=== PATIENT | female | born 1985 | race Caucasian/White ===

== ENCOUNTER 2016-12-19 10:51 | Observation (INO) | payer MEDICAID ==
[2016-12-19 10:59] VITALS: BP 103/68; PULSE 62; RESP 18; TEMP 97.9; O2SAT 99
--- NOTE | 2016-12-19 11:31 | EDPHY ---
H & P Stated Complaint: tripped [id number] /fell impacting back/23 wks /vaginal bleeding HPI/ROS: CHIEF COMPLAINT: Fall, back pain, 23 weeks HISTORY OF PRESENT ILLNESS: patient, 23 weeks gestation. She reports falling today at work. She fell and landed on her back on concrete. She did not strike her head or lose conscious. She has no numbness or tingling. No midline tenderness of the back. She has a mild to moderate right low back pain over the soft tissue. No abdominal strike. Minimal abdominal discomfort. No vaginal bleeding. No pelvic pain. No other associated complaints or modifying factors. REVIEW OF SYSTEMS: Ten systems reviewed and are negative unless otherwise noted in the HPI PAST MEDICAL HISTORY: None SOCIAL HISTORY: Nonsmoker. Twenty-three weeks gestation, FAMILY HISTORY: Noncontributory EXAMINATION General Appearance: Alert, no distress Head: normocephalic, atraumatic Eyes: Pupils equal and round, no conjunctival pallor or injection ENT, Mouth: Mucous membranes moist Neck: Normal inspection, supple, non-tender Respiratory: Lungs are clear to auscultation Cardiovascular: Regular rate and rhythm Gastrointestinal: Abdomen is soft and gravid in appearance. Fundal height is consistent with gestational age. No tenderness. No guarding. No tympany. No rigidity. No CVA tenderness. Back: No midline tenderness. No crepitus, step-off or deformity. Tenderness to the right lower back over the soft tissue only. No lacerations abrasions or contusions. Neurological: GCS 15. A&O, nonfocal, normal gait. Strength is symmetric in all 4 limbs. Sensory intact distally. Skin: Warm and dry, no rash Extremities: Nontender, no pedal edema Psychiatric: Mood and affect normal DIFFERENTIAL DIAGNOSES: Including but not limited to contusion, sprain, strain, fracture MDM: 11:29 a.m. Mechanical fall with right lower back pain. There is no midline tenderness of the spine at any level. There is no evidence of acute cord compression or cauda equina. No evidence of bony trauma or injury. This appears to be all soft tissue of the right lower back. Her abdomen is soft and benign. She is in no acute distress. heart tones are 140 beats per minute. There is a palpable fundus at the appropriate level for gestational age. She will be discharged home in stable condition, and she has instructions to present immediately to Labor and delivery for evaluation of the fetus. She is comfortable with this plan. There is no active bleeding from any site. She is discharged in stable condition. SUPERVISION: This patient was independently evaluated without direct examination by the attending physician. Case was discussed with attending physician. Source: Patient Exam Limitations: No limitations - Personal History LMP (Females 10-55): Current Tetanus/Diphtheria Vaccine: Yes - Medical/Surgical History Hx Asthma: No Hx Chronic Respiratory Disease: No Hx Diabetes: No Hx Cardiac Disease: No Hx Renal Disease: No Hx Cirrhosis: No Hx Alcoholism: No Hx HIV/AIDS: No Hx Splenectomy or Spleen Trauma: No Other PMH: denies - Social History Smoking Status: Never smoked Constitutional: Initial Vital Signs Temperature (C) 97.9 F 12/19/16 10:56 Heart Rate 62 12/19/16 10:56 Respiratory Rate 18 12/19/16 10:56 Blood Pressure 103/68 12/19/16 10:56 O2 Sat (%) 99 12/19/16 10:56 O2 Delivery Mode Room Air Allergies/Adverse Reactions: No Known Allergies Allergy (Unverified 12/19/16 10:56) Home Medications: Medication Instructions Recorded 12/19/16 Departure - Departure Disposition: Home, Routine, Self-Care Clinical Impression: Acute low back pain Qualifiers: Back pain laterality: right Sciatica presence: without sciatica Qualified Code( s): M54.5 - Low back pain Qualifiers: Weeks of gestation: 23 weeks Qualified Code(s): Z3A.23 - 23 weeks gestation of Condition: Good Instructions: Low Back Strain (ED), Acute Low Back Pain (ED) Additional Instructions: 1. Present to Labor and delivery for evaluation of the fetus at this time. 2. Return to the ER for any worsening pain, midline back pain, numbness, tingling, weakness, incontinence, vaginal bleeding Referrals: Flores Masterson PA [Primary Care Provider] - As per Instructions Stand Alone Forms: Work Comp Follow Up
--- NOTE | 2016-12-19 13:09 | OBPROG ---
OBG Labor Progress Note Assessment/Plan: Assessment:irregular contractions noted. denies leaking bleeding and cramping denies pain in abdomen feeling movement consult with isidoro botello, type and screen monitor contractions x 1 h doppler x2 or continuous if able may discharge after lab work back vs wnl Plan:discharge to home after labwork, fu in clinic on friday routinely sees [facility] 12/19/16 13:06 Subjective: Feeling pain in her back after a fall at work. Has been cleared by the er. Denies leaking cramping bleeding, feeling baby move. Objective: Temp Pulse Resp BP Pulse Ox 36.6 C 62 18 103/68 99 12/19/16 10:56 12/19/16 10:56 12/19/16 10:56 12/19/16 10:56 12/19/16 10:56 - Physical Exam General Appearance: WD/WN, alert, no apparent distress Respiratory: chest non-tender, lungs clear, normal breath sounds Cardiac/Chest: regular rate, rhythm Abdomen: normal bowel sounds Extremities: normal range of motion, Ligia's sign (negativbe bilaterally) DTR- Lower Extremities: Knee (R): 1+, Knee (L): 1+ (no clonus) Skin: normal color, warm/dry Neuro/Psych: no motor/sensory deficits, alert, normal mood/affect, oriented x 3 Oxytocin Orders Assessment - Pre-Induction/Augmentation Assessment Gestational Age: 23 week(s) and 5 day(s) ICD10 Worksheet Patient Problems: Problems Problem Status Onset Acute low back pain Acute Acute
--- NOTE | 2016-12-19 13:56 | GHP ---
[f rep st] HISTORY AND PHYSICAL DATE OF ADMISSION: 12/19/2016 HISTORY OF PRESENT ILLNESS: The patient is a 31-year-old, 3, para 2, with an EDC of , which gives her a gestational age of 23 weeks. The patient comes in to Labor and Delivery for observation after a fall at 4:30 this morning, on 12/19/2016 at [facility]. The patient fell to her bottom. The patient is complaining of back pain. Denies leaking, bleeding, cramping. States feel ing positive movement. The patient has been receiving routine care through [facility]. PAST MEDICAL HISTORY: Patient states benign. PAST MEDICAL HISTORY: Benign. GYNECOLOGICAL HISTORY: Benign. FAMILY HISTORY: Noncontributory. SOCIAL HISTORY: Patient is . Denies smoking. Denies any routine drug use. MEDICATIONS: The patient is taking vitamins on a routine basis 1 p.o. daily. ALLERGIES: The patient states she has no allergies. LABORATORY DATA: At this time, I do not have lab work. We will do a type and screen, as well as a KB (Stevan). PHYSICAL ASSESSMENT: GENERAL APPEARANCE: Patient is awake, alert, oriented x3. LUNGS: Clear bila terally. ABDOMEN: Bowel sounds are positive in all 4 quadrants. EXTREMITIES: DTRs are 1+ bilater ally, with no clonus. Homans sign is negative. On the monitor, 1 contraction in 30 minutes was noted. Patient denies feeling that. heart ra te is 140 baseline, and is with 10 x 10 accelerations, which is reassuring for a 23 weeker. PLAN OF CARE: 1. KB. 2. Type and screen. 3. Monitor contractions until labs come back. With labs being negative and patient having a positi ve blood type, will discharge to home. If patient is a negative blood type, patient will receive Rh oGAM before discharge. Plan of care followup is to follow up in her own clinic on Friday, and discu ssed with patient, reasons to return, leaking, bleeding, cramping, baby not moving. Patient verbali zed understanding. Physician responsible is Dr. Saritha Ibarra, consulted on plan of care of patient before patient was d ischarged. /[id number]/MODL
== END 2016-12-19 14:50 | disposition home or self-care (01) ==
LOC: FLD 11:50
PROVIDERS: ADMIT Advanced Practice Midwife; ATTEND Obstetrics & Gynecology
DX: O99.89 Other specified diseases and conditions complicating pregnancy, childbirth and the puerperium (principal); M54.5 Low back pain; W19.XXXA Unspecified fall, initial encounter; Y99.0 Civilian activity done for income or pay; Y92.511 Restaurant or cafe as the place of occurrence of the external cause; Z3A.23 23 weeks gestation of pregnancy
CPT/HCPCS: G0378 ×2